=== PATIENT | female | born 1995 | race Caucasian/White ===

== ENCOUNTER → 2017-03-08 | Outpatient (CLI) | payer OTHER ==
[~2017-03-08] MED LIST: ALBUAER2 INH; BCPILLS PO; LACT1CAP6 PO; MONT1TAB3 PO
[2017-03-10 03:59] LABS: HONEY BEE IgE <0.10 KU/L
== END | disposition home or self-care (01) ==
LOC: C.LAB1850 10:14
PROVIDERS: ATTEND Internal Medicine Pulmonary Disease
DX: T63.481A Toxic effect of venom of other arthropod, accidental (unintentional), initial encounter (principal); X58.XXXA Exposure to other specified factors, initial encounter